=== PATIENT | female | born 1970 | race Caucasian/White ===

== ENCOUNTER 2018-02-10 17:30 | Emergency (ER) | payer SELFPAY ==
--- NOTE | 2018-02-10 18:16 | ER Document Report ---
ED Psych Disorder / Suicide - General Chief Complaint: Psych Problem Stated Complaint: PSYCH EVAL Time Seen by Provider: 02/10/18 18:15 Mode of Arrival: Ambulatory Information source: Patient, Relative Notes: Patient is a 47-year-old female with history of bipolar disorder who presents with acute mental status change including manic symptoms. 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 TRAVEL OUTSIDE OF THE [place] IN LAST 30 DAYS: No - HPI Patient complains to provider of: Bizarre behavior. No: Homicidal plan, Homicidal attempt, Suicidal ideation, Suicidal attempt Onset: Yesterday Onset was: Sudden Quality of pain: No pain Severity: Moderate Pain Level: Denies Suicide Risk Factors: Bipolar, Depressed, No spouse Normal mood: No - Manic Associated symptoms: Anxious, Flight of ideas, Manic, Congregation preoccupation Similar symptoms previously: Yes Recently seen / treated by doctor: No - Related Data Allergies/Adverse Reactions: No Known Allergies Allergy (Verified 02/10/18 18:42) Past Medical History - General Information source: Patient, Relative - Social History Smoking Status: Former Smoker Chew tobacco use (# tins/day): No Frequency of alcohol use: Occasional Drug Abuse: None Lives with: Family Family History: Reviewed & Not Pertinent Patient has suicidal ideation: No Patient has homicidal ideation: No - Past Medical History Cardiac Medical History: Reports: None Pulmonary Medical History: Reports: None EENT Medical History: Reports: None Neurological Medical History: Reports: None Endocrine Medical History: Reports: None Renal/ Medical History: Reports: None Malignancy Medical History: Reports: None GI Medical History: Reports: None Musculoskeletal Medical History: Reports None Skin Medical History: Reports None Psychiatric Medical History: Reports: None, Hx Attention Deficit Hyperactivity Disorder, Hx Bipolar Disorder, Hx Dementia Traumatic Medical History: Reports: None Infectious Medical History: Reports: None Surgical Hx: Negative Past Surgical History: Reports: None - Immunizations Immunizations up to date: Yes Hx Diphtheria, Pertussis, Tetanus Vaccination: Yes Review of Systems - Review of Systems -: Yes ROS unobtainable due to patient's medical condition Constitutional: No symptoms reported EENT: No symptoms reported Cardiovascular: No symptoms reported Respiratory: No symptoms reported Gastrointestinal: No symptoms reported Genitourinary: No symptoms reported Female Genitourinary: No symptoms reported Musculoskeletal: No symptoms reported Skin: No symptoms reported Hematologic/Lymphatic: No symptoms reported Neurological/Psychological: Other - Risky behavior, flight of ideas, jew delusions -: Yes All other systems reviewed and negative Physical Exam - Vital signs Vitals: Temp Pulse Resp BP Pulse Ox 98.5 F 75 20 140/92 H 98 02/10/18 17:42 02/10/18 17:42 02/10/18 17:42 02/10/18 17:42 02/10/18 17:42 Interpretation: Normal - General General appearance: Appears well, Alert In distress: None - HEENT Head: Normocephalic, Atraumatic Eyes: Normal Pupils: PERRL - Respiratory Respiratory status: No respiratory distress Chest status: Nontender Breath sounds: Normal Chest palpation: Normal - Cardiovascular Rhythm: Regular Heart sounds: Normal auscultation Murmur: No - Abdominal Inspection: Normal Distension: No distension Bowel sounds: Normal Tenderness: Nontender Organomegaly: No organomegaly - Rectal Tenderness: No - Deferred - Genitourinary Notes: Deferred - Back Back: Normal, Nontender - Extremities General upper extremity: Normal inspection, Nontender, Normal color, Normal ROM , Normal temperature General lower extremity: Normal inspection, Nontender, Normal color, Normal ROM , Normal temperature, Normal weight bearing. No: Cristine's sign - Neurological Neuro grossly intact: Yes Cognition: Normal Orientation: AAOx4 Braman Coma Scale Eye Opening: Spontaneous Minerva Coma Scale Verbal: Oriented Braman Coma Scale Motor: Obeys Commands Minerva Coma Scale Total: 15 Speech: Normal Motor strength normal: LUE, RUE, LLE, RLE Sensory: Normal - Psychological Associated symptoms: Normal affect, Agitated, Anxious, Manic, Congregation preoccupation, Unable to sleep. No: Auditory hallucinations, Visual hallucinations - Skin Skin Temperature: Warm Skin Moisture: Dry Skin Color: Normal Course - Re-evaluation Re-evalutation: 02/10/18 19:32 Plan will be to medically clear patient and involuntary commit her for inpatient treatment and psychiatric evaluation. 02/11/18 03:30 Patient is medically cleared. She will be evaluated by psychiatry in the morning. - Vital Signs Vital signs: Temp Pulse Resp BP Pulse Ox 98.5 F 75 20 140/92 H 98 02/10/18 17:42 02/10/18 17:42 02/10/18 17:42 02/10/18 17:42 02/10/18 17:42 - Laboratory Result Diagrams: 02/10/18 18:00 02/10/18 18:00 Laboratory results interpreted by me: 02/10/18 02/10/18 02/10/18 17:40 18:00 18:00 WBC 14.4 H Absolute Neutrophils 10.6 H Sodium 136.1 L Chloride 97 L Urine Ketones TRACE H Urine Blood MODERATE H Salicylates < 1.0 L Acetaminophen < 10 L - EKG Interpretation by Ne EKG shows normal: Sinus rhythm Rate: Normal Rhythm: NSR [place]/QRS: No: LBBB P Waves: No: BERTHA, LAE, Absent, AV Dissociation, Other Heart block present: No: 1st Degree, Mobitz 1, Mobitz 2, CHB (3rd degree block) Discharge - Discharge Clinical Impression: Bipolar disorder with severe cachorro, Hallucinations Condition: Stable
[2018-02-10 18:34] LABS: ABSOLUTE BASOPHILS # (AUTO) 0.1 10^3/uL (0.0-0.2); ABSOLUTE LYMPHOCYTES (AUTO) 2.5 10^3/uL (0.5-4.7); ABSOLUTE MONOCYTES (AUTO) 1.1 10^3/uL (0.1-1.4); ABSOLUTE NEUT (AUTO) 10.6 10^3/uL (1.7-8.2); BASOPHILS % (AUTO) 0.9 % (0-2); EOSINOPHILS % (AUTO) 0.3 % (0-6); HEMATOCRIT 43.8 % (36.0-47.0); HEMOGLOBIN 15.5 g/dL (12.0-15.5); LYMPHOCYTES % (AUTO) 17.2 % (13-45); MEAN CORPUSCULAR HEMOGLOBIN 31.1 pg (27.0-33.4); MEAN CORPUSCULAR HGB CONC 35.3 g/dL (32.0-36.0); MEAN CORPUSCULAR VOLUME 88 fl (80-97); MONOCYTES % (AUTO) 7.8 % (3-13); PLATELET COUNT 435 10^3/uL (150-450); RED BLOOD COUNT 4.98 10^6/uL (3.72-5.28); RED CELL DISTRIBUTION WIDTH 12.9 % (11.5-14.0); SEGMENTED NEUTROPHILS % (AUTO) 73.8 % (42-78); TOTAL CELLS COUNTED % (AUTO) 100 %; WHITE BLOOD COUNT 14.4 10^3/uL (4.0-10.5)
[2018-02-10 18:48] LABS: APPEARANCE,URINE SLIGHTLY-CLOUDY; BILIRUBIN,URINE NEGATIVE (NEGATIVE); COLOR,URINE YELLOW; GLUCOSE, URINE NEGATIVE (NEGATIVE); KETONES,URINE TRACE mg/dL (NEGATIVE); LEUKOCYTE ESTERASE,URINE NEGATIVE (NEGATIVE); NITRITE,URINE NEGATIVE (NEGATIVE); PROTEIN,URINE NEGATIVE (NEGATIVE); URINE SPECIFIC GRAVITY 1.008; UROBILINOGEN,URINE NEGATIVE mg/dL (<2.0)
[2018-02-10 18:50] LABS: ALANINE AMINOTRANSFERASE 36 U/L (9-52); ALBUMIN 4.7 g/dL (3.5-5.0); ALKALINE PHOSPHATASE 76 U/L (38-126); ANION GAP 15 (5-19); ASPARTATE AMINO TRANSFERASE 29 U/L (14-36); BILIRUBIN,DIRECT 0.2 mg/dL (0.0-0.4); BILIRUBIN,TOTAL 0.7 mg/dL (0.2-1.3); BLOOD UREA NITROGEN 8 mg/dL (7-20); CALCIUM 9.2 mg/dL (8.4-10.2); CARBON DIOXIDE 24 mmol/L (22-30); CHLORIDE 97 mmol/L (98-107); GLUCOSE 105 mg/dL (75-110); SODIUM 136.1 mmol/L (137-145); TOTAL PROTEIN 7.4 g/dL (6.3-8.2)
[2018-02-10 18:51] LABS: ACETAMINOPHEN < 10 ug/mL (10-30); ALCOHOL < 10 mg/dL (NONE DETECTED); SALICYLATE < 1.0 mg/dL (2.0-20.0)
[2018-02-10 19:03] LABS: URINE AMPHETAMINES SCREEN NEGATIVE; URINE BARBITURATES SCREEN NEGATIVE; URINE BENZODIAZEPINES SCREEN UNCONFIRMED POSITIVE; URINE COCAINE SCREEN NEGATIVE; URINE MARIJUANA (THC) SCREEN UNCONFIRMED POSITIVE; URINE METHADONE SCREEN NEGATIVE; URINE PHENCYCLIDINE SCREEN NEGATIVE
[2018-02-10] MEDS: BACLOFEN 10 MG TABLET PO PRN (19:47)
[2018-02-10] MEDS: IBUPROFEN 800 MG TABLET PO SCH (19:48)
[2018-02-10] MEDS: DIAZEPAM 5 MG TABLET PO PRN (19:55)
[2018-02-10] MEDS ORDERED: TRAZODONE HCL 50 MG TABLET PO SCH (22:00)
[2018-02-11] MEDS: IBUPROFEN 800 MG TABLET PO SCH ×3 (07:32→20:03)
--- NOTE | 2018-02-11 09:25 | EKG REPORT ---
SEVERITY:- ABNORMAL ECG - SINUS RHYTHM NONSPECIFIC INTRAVENTRICULAR CONDUCTION DELAY BORDERLINE INFERIOR Q WAVES : Confirmed by: Tommy Villarreal 11-Feb-2018 09:25:11
[2018-02-11] MEDS: DIAZEPAM 5 MG TABLET PO PRN (10:43)
[2018-02-11] MEDS: BACLOFEN 10 MG TABLET PO PRN (10:43)
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
[2018-02-11] MEDS: BUSPIRONE HCL 10 MG TABLET PO SCH ×2 (13:32→17:13)
[2018-02-11] MEDS: BUPROPION HCL 75 MG TABLET PO SCH (13:32)
[2018-02-11] MEDS: BENZTROPINE MESYLATE 1 MG TABLET PO SCH (13:32)
[2018-02-11] MEDS: OLANZAPINE 5 MG TABLET PO SCH ×2 (13:32→17:13)
[2018-02-11] MEDS ORDERED: BENZONATATE 100 MG CAPSULE PO ONE (22:06)
[2018-02-12] MEDS ORDERED: BENZONATATE 100 MG CAPSULE PO ONE (05:53)
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
[2018-02-12] MEDS: IBUPROFEN 800 MG TABLET PO SCH ×2 (08:46→11:31)
[2018-02-12] MEDS: BUPROPION HCL 75 MG TABLET PO SCH (09:21)
[2018-02-12] MEDS: BENZTROPINE MESYLATE 1 MG TABLET PO SCH (09:21)
[2018-02-12] MEDS: BUSPIRONE HCL 10 MG TABLET PO SCH (09:21)
[2018-02-12] MEDS: OLANZAPINE 5 MG TABLET PO SCH (09:25)
--- NOTE | 2018-02-12 11:25 | ER Document Report ---
Doctor's Note Notes: 02/12/18 11:24 Rounds: Chart reviewed and patient interviewed. Patient says she is feeling much better. Looks better this morning. Vital signs are all essentially normal. No new labs to review. Patient appears to be medically stable for transfer or discharge. Bereket West MD
[2018-02-12 11:31] VITALS: BP 137/79
== END 2018-02-12 11:51 | disposition home or self-care (01) ==
LOC: ER 17:30
DX: F31.9 Bipolar disorder, unspecified (principal); Z79.899 Other long term (current) drug therapy; R44.3 Hallucinations, unspecified; M54.89 Other dorsalgia; M79.632 Pain in left forearm; M79.631 Pain in right forearm; Z87.891 Personal history of nicotine dependence
CPT/HCPCS: 36415; 80053; 80307; 81001; 85025; 93005; 93010; 99285